=== PATIENT | male | born 1950 | race Caucasian/White ===

== ENCOUNTER → 2022-10-30 | Day surgery (SDC) | payer MEDICARE, BC ==
[~2022-10-30] VITALS: Ht 167.6 cm; Wt 77.1 kg
[~2022-10-30] MED LIST: APIX5TAB PO; ATOR20TA PO; DexAMETHasone SOD PHOS 10MG/1ML VIAL INJ ONE; GLYCOPYRROLATE 0.2 MG/ML 1ML VIAL ONE; LIDOCAINE 2% (LOCAL ANESTH.) PF 5ml SDV ONE; ONDANSETRON HCL 4 MG/2 ML VIAL ONE; PROPOFOL 10 MG/ML 20 ML IV ONE; SOTA80TA PO; VANCOMYCIN HCL 1000 MG VL ONE; fentaNYL CITRATE 100 MCG/2 ML VL ONE
[2022-10-30 15:36] VITALS: BP 147/78
== END | disposition home or self-care (01) ==
LOC: SUR 08:54
PROVIDERS: ATTEND Orthopaedic Surgery
DX: T81.30XA Disruption of wound, unspecified, initial encounter (principal); Y83.8 Other surgical procedures as the cause of abnormal reaction of the patient, or of later complication, without mention of misadventure at the time of the procedure; I48.91 Unspecified atrial fibrillation; I10 Essential (primary) hypertension; Z79.899 Other long term (current) drug therapy; Z20.822 Contact with and (suspected) exposure to COVID-19
CPT/HCPCS: 29824; 29826; 87075; 87205; J1100; J2001; J2405; J2704; J3370; J7050; U0003